=== PATIENT | male | born 1980 | race Caucasian/White ===

== ENCOUNTER 2016-05-19 15:45 | Emergency (ER) | payer MEDICAID ==
[~2016-05-19] VITALS: Ht 185.4 cm; Wt 122.5 kg
[~2016-05-19 15:45] MED LIST: BACTRIM DS 8001 TA1 PO; CEPHALEXIN500 M1 PO; CIPRO500 MG PO; CYCLOBENZAPRINE10 MG PO; FLEXERIL10 MG PO; IBU800 MG PO; IBUPROFEN600 MG PO; LIDODERM 5% PATC1 EA PO; MEDROL DOSEPAK4 MG PO; MOBIC15 MG PO; Motrin,Rufen800 MG PO; NAPROSYN500 MG PO; TRAMADOL HCL50 MG PO; TYLENOL W/CODEI1 TA4 PO; ULTRAM50 MG PO; VICODIN 5/500 505 MG PO; VICODIN ES 7501 TAB PO; ZANAFLEX4 M2 PO; ZITHROMAX250 MG PO
[2016-05-19] MEDS ORDERED: ANAPROX DS550 MG PO (17:28)
[2016-05-19] MEDS ORDERED: HYDROCODONE BIT1 T11 PO (17:28)
[2016-05-19] MEDS ORDERED: CEFADROXIL500 M1 PO (17:31)
== END 2016-05-19 17:40 | disposition home or self-care (01) ==
LOC: ED 15:45
DX: S60.022A Contusion of left index finger without damage to nail, initial encounter (principal); F17.200 Nicotine dependence, unspecified, uncomplicated; W22.8XXA Striking against or struck by other objects, initial encounter; Y93.89 Activity, other specified; Y92.89 Other specified places as the place of occurrence of the external cause; Y99.9 Unspecified external cause status

== ENCOUNTER 2016-07-30 16:35 | Emergency (ER) | payer OTHER ==
[~2016-07-30] VITALS: Ht 185.4 cm; Wt 124.7 kg
[~2016-07-30 16:35] MED LIST changes: +ANAPROX DS550 MG PO; +CEFADROXIL500 M1 PO; +HYDROCODONE BIT1 T11 PO
[2016-07-30] MEDS ORDERED: NAPROSYN500 MG PO (17:40)
== END 2016-07-30 17:44 | disposition home or self-care (01) ==
LOC: ED 16:35
DX: M25.561 Pain in right knee (principal); F17.200 Nicotine dependence, unspecified, uncomplicated

== ENCOUNTER 2018-01-27 20:31 | Emergency (ER) | payer SELFPAY ==
[~2018-01-27] VITALS: Ht 185.4 cm; Wt 122.5 kg
[2018-01-27] MEDS ORDERED: ROBITUSSIN DM 105 ML PO (21:55)
[2018-01-27] MEDS ORDERED: PREDNISONE50 MG PO (21:55)
[2018-01-27] MEDS ORDERED: AMOXICILLIN500 M2 PO (21:55)
== END 2018-01-27 22:20 | disposition home or self-care (01) ==
LOC: ED 20:31
DX: J20.9 Acute bronchitis, unspecified (principal); F17.200 Nicotine dependence, unspecified, uncomplicated; Z98.890 Other specified postprocedural states

== ENCOUNTER 2018-04-24 04:37 | Emergency (ER) | payer SELFPAY ==
[~2018-04-24] VITALS: Ht 185.4 cm; Wt 124.7 kg
[~2018-04-24 04:37] MED LIST changes: +AMOXICILLIN500 M2 PO; +PREDNISONE50 MG PO; +ROBITUSSIN DM 105 ML PO
== END 2018-04-24 05:55 | disposition left against medical advice (07) ==
LOC: ED 04:37
DX: M54.31 Sciatica, right side (principal); F17.200 Nicotine dependence, unspecified, uncomplicated

== ENCOUNTER 2018-11-15 14:55 | Emergency (ER) | payer SELFPAY ==
[~2018-11-15] VITALS: Ht 185.4 cm; Wt 131.5 kg
[2018-11-15] MEDS ORDERED: PREDNISONE20 M1 PO (15:17)
[2018-11-15] MEDS ORDERED: CEFADROXIL500 M1 PO (15:17)
== END 2018-11-15 15:37 | disposition home or self-care (01) ==
LOC: ED 14:55
DX: S40.861A Insect bite (nonvenomous) of right upper arm, initial encounter (principal); F17.200 Nicotine dependence, unspecified, uncomplicated; W57.XXXA Bitten or stung by nonvenomous insect and other nonvenomous arthropods, initial encounter; Y93.89 Activity, other specified; Y92.89 Other specified places as the place of occurrence of the external cause; Y99.8 Other external cause status

== ENCOUNTER 2020-01-04 13:28 | Inpatient (IN) | payer SELFPAY ==
[~2020-01-04] VITALS: Ht 185.4 cm; Wt 124.7 kg
[2020-01-04] VITALS (9 sets, daily range): BP systolic 109–145; BP diastolic 62–106
[~2020-01-04 13:28] MED LIST changes: +PREDNISONE20 M1 PO
[2020-01-04 14:08] LABS: BASO # 0.1 10*3/uL (0.0-0.1); BASO % 0.4 % (0.0-1.0); EOS # 0.3 10*3/uL (0.0-0.4); EOS % 1.6 % (1.0-4.0); LYMPH % 10.6 % (27.0-41.0); MEAN CELL VOLUME 88.2 fl (80.0-94.0); MEAN CORPUSCULAR HGB 29.3 pg (27.0-31.0); MEAN CORPUSCULAR HGB CONC 33.2 g/dl (33.0-37.0); MEAN PLATELET VOLUME 9.6 fl (9.6-12.3); MONO # 1.1 10*3/uL (0.1-1.0); MONO % 5.5 % (3.0-9.0); NEUT # 15.7 10*3/uL (2.3-7.9); NEUT % 81.3 % (47.0-73.0); PLATELET COUNT AUTOMATED 202 10*3/uL (130-400); RED BLOOD COUNT 5.67 10*6/uL (4.50-5.90); RED CELL DISTRI WIDTH 13.4 % (0-14.5); WHITE BLOOD COUNT 19.3 10*3/uL (4.8-10.8)
[2020-01-04 14:20] LABS: ACT PARTIAL THROMBO TIME 28.9 SECONDS (20.0-32.1)
[2020-01-04 14:29] LABS: ALBUMIN 3.5 gm/dl (3.1-4.5); ALKALINE PHOSPHATASE 72 U/L (45-117); BUN 12 mg/dl (7-24); CHLORIDE 104 mmol/L (98-107); LIPASE 388 U/L (73-393); POTASSIUM 3.7 mmol/L (3.5-5.1); SGOT/AST 11 IU/L (3-35); SGPT/ALT 33 U/L (12-78); SODIUM 137 mmol/L (136-145); TROPONIN I < 0.015 ng/ml (<0.045)
[2020-01-05] VITALS: BP 121/74
[2020-01-05 06:38] LABS: BASO % 0.1 % (0.0-1.0); HEMATOCRIT 49.5 % (42.0-52.0); LYMPH # 1.5 10*3/uL (1.3-4.4); LYMPH % 6.8 % (27.0-41.0); MEAN CELL VOLUME 88.7 fl (80.0-94.0); MEAN CORPUSCULAR HGB 29.6 pg (27.0-31.0); MEAN CORPUSCULAR HGB CONC 33.3 g/dl (33.0-37.0); MEAN PLATELET VOLUME 9.8 fl (9.6-12.3); MONO # 1.3 10*3/uL (0.1-1.0); MONO % 6.2 % (3.0-9.0); NEUT # 18.5 10*3/uL (2.3-7.9); NEUT % 86.2 % (47.0-73.0); PLATELET COUNT AUTOMATED 216 10*3/uL (130-400); RED BLOOD COUNT 5.58 10*6/uL (4.50-5.90); RED CELL DISTRI WIDTH 13.5 % (0-14.5); WHITE BLOOD COUNT 21.4 10*3/uL (4.8-10.8)
[2020-01-05 07:11] LABS: ALBUMIN 3.3 gm/dl (3.1-4.5); BUN 12 mg/dl (7-24); CHLORIDE 103 mmol/L (98-107); POTASSIUM 4.3 mmol/L (3.5-5.1); SODIUM 135 mmol/L (136-145)
[2020-01-05 07:21] LABS: ALKALINE PHOSPHATASE 66 U/L (45-117); CHOLESTEROL 258 mg/dL (<200); CREATININE 1.26 mg/dL (0.70-1.30); FREE T4 1.39 ng/dl (0.76-1.46); HDL CHOLESTEROL 40 mg/dl (40-60); LDL CHOLESTEROL 193 mg/dL (9-159); SGOT/AST 8 IU/L (3-35); SGPT/ALT 27 U/L (12-78); THYROID STIM HORMONE (HS) 0.397 uIU/ml (0.358-4.75); TRIGLYCERIDES 127 mg/dl (<150); VLDL CHOLESTEROL 25 mg/dL (6-40)
[2020-01-05 08:18] LABS: VITAMIN D, 25-HYDROXY 25.6 ng/mL (30-100)
[2020-01-05] MEDS ORDERED: ZOFRAN4 MG PO (09:08)
[2020-01-05] MEDS ORDERED: COLACE100 MG PO (09:08)
[2020-01-05] MEDS ORDERED: HYDROCODONE-AC1 EAC1 PO (09:08)
[2020-01-05] MEDS ORDERED: NORCO 5-325 TA1 EACH PO (09:11)
== END 2020-01-05 11:25 | disposition home or self-care (01) | DRG 854 ==
LOC: ED 13:28 → 5E 17:03 → EDHOLD 17:03 → 5E 18:03
PROVIDERS: Nurse Practitioner Family; Surgery; ADMIT Student in an Organized Health Care Education/Training Program; ATTEND Student in an Organized Health Care Education/Training Program
PROC: 0DTJ4ZZ Resection of Appendix, Percutaneous Endoscopic Approach (ICD-10-PCS; principal; 2020-01-04)
DX: A41.9 Sepsis, unspecified organism (principal); E44.0 Moderate protein-calorie malnutrition; K35.30 Acute appendicitis with localized peritonitis, without perforation or gangrene; R73.9 Hyperglycemia, unspecified; F17.210 Nicotine dependence, cigarettes, uncomplicated; F12.10 Cannabis abuse, uncomplicated; E66.9 Obesity, unspecified; Z71.6 Tobacco abuse counseling; Z90.49 Acquired absence of other specified parts of digestive tract; Z68.36 Body mass index [BMI] 36.0-36.9, adult

== ENCOUNTER 2021-12-25 18:27 | Emergency (ER) | payer SELFPAY ==
[~2021-12-25] VITALS: Ht 182.8 cm; Wt 127.0 kg
[~2021-12-25 18:27] MED LIST changes: +COLACE100 MG PO; +HYDROCODONE-AC1 EAC1 PO; +NORCO 5-325 TA1 EACH PO; +ZOFRAN4 MG PO
[2021-12-25 19:33] LABS: HEMATOCRIT 46.8 % (42.0-52.0); MEAN CELL VOLUME 89.1 fl (80.0-94.0); MEAN CORPUSCULAR HGB 29.7 pg (27.0-31.0); MEAN CORPUSCULAR HGB CONC 33.3 g/dl (33.0-37.0); MEAN PLATELET VOLUME 9.8 fl (9.6-12.3); PLATELET COUNT AUTOMATED 147 10*3/uL (130-400); RED BLOOD COUNT 5.25 10*6/uL (4.50-5.90); RED CELL DISTRI WIDTH 13.4 % (0-14.5); WHITE BLOOD COUNT 5.4 10*3/uL (4.8-10.8)
[2021-12-25 19:38] LABS: MANUAL DIFF REFLEX YES
[2021-12-25 19:50] LABS: ALKALINE PHOSPHATASE 71 U/L (45-117); BUN 6 mg/dl (7-24); CHLORIDE 102 mmol/L (98-107); CREATININE 1.29 mg/dL (0.70-1.30); LIPASE 169 U/L (73-393); POTASSIUM 3.5 mmol/L (3.5-5.1); SGOT/AST 10 IU/L (3-35); SGPT/ALT 21 U/L (12-78); SODIUM 134 mmol/L (136-145); TOTAL PROTEIN 6.6 gm/dL (6.4-8.2)
[2021-12-25 20:17] LABS: PLATELET SUFFICIENCY NORMAL (NORMAL); TOTAL CELLS COUNTED 100 #CELLS
[2021-12-25 21:10] LABS: BILIRUBIN Negative (Negative); BLOOD Trace-Lysed (Negative); CLARITY Clear (Clear); COLOR Yellow (Yellow); GLUCOSE Negative (Negative); KETONE Trace (Negative); LEUKO ESTERASE Negative (Negative); NITRITE Negative (Negative); PH 5.5 (4.5-8.0); SPECIFIC GRAVITY 1.015 (1.001-1.030)
[2021-12-25 22:06] LABS: BACTERIA TRACE; RBC 0-2 rbc/hpf (0-2); WBC 0-2 wbc/hpf (0-5)
== END 2021-12-25 21:44 | disposition home or self-care (01) ==
LOC: ED 18:27
PROVIDERS: Physician Assistant
DX: U07.1 COVID-19 (principal); Z90.89 Acquired absence of other organs; Z90.49 Acquired absence of other specified parts of digestive tract; Z87.891 Personal history of nicotine dependence